=== PATIENT | female | born 1985 | race Caucasian/White ===

== ENCOUNTER 2018-05-04 17:53 | Emergency (ER) | payer MEDICAID ==
[2018-05-04] MEDS: ACETAMINOPHEN 325 MG TAB PO (19:56)
== END 2018-05-04 23:08 | disposition home or self-care (01) ==
LOC: FTE 17:53
DX: M25.572 Pain in left ankle and joints of left foot (principal)
CPT/HCPCS: 73610; 93971; 99284-25

== ENCOUNTER 2018-05-09 14:36 | Emergency (ER) | payer MEDICAID ==
[2018-05-09 17:08] LABS: ADD MAN DIFF? NO
[2018-05-09 17:12] LABS: BASOPHILS % 0.2 % (0.0-2.0); EOSINOPHILS # 0.1 10^3/ul (0.0-0.5); EOSINOPHILS % 0.8 % (0.0-7.0); HEMATOCRIT 36.2 % (37.0-47.0); HEMOGLOBIN 12.1 g/dl (12.0-16.0); LYMPHOCYTES # 0.9 10^3/ul (0.8-2.9); LYMPHOCYTES % 10.7 % (15.0-51.0); MEAN CORPUSCULAR HEMOGLOBIN 31.3 pg (29.0-33.0); MEAN CORPUSCULAR HGB CONC 33.4 g/dl (32.0-37.0); MEAN CORPUSCULAR VOLUME 93.5 fl (82.0-101.0); MEAN PLATELET VOLUME 11.5 fl (7.4-10.4); MONOCYTE # 0.8 10^3/ul (0.3-0.9); MONOCYTES % 9.1 % (0.0-11.0); NEUTROPHIL # 6.7 10^3/ul (1.6-7.5); NEUTROPHILS % 78.4 % (39.0-77.0); PLATELET COUNT 208 10^3/UL (140-415); RED BLOOD COUNT 3.87 10^6/ul (4.20-5.40); RED CELL DISTRIBUTION WIDTH 12.8 % (11.5-14.5)
[2018-05-09 17:12] LABS: WHITE BLOOD COUNT 8.6 10^3/ul (4.8-10.8)
[2018-05-09 17:30] LABS: ALANINE AMINOTRANSFERASE 54 IU/L (13-69); ALBUMIN/GLOBULIN RATIO 0.86; ALKALINE PHOSPHATASE 251 IU/L (42-121); ANION GAP 12 (8-16); ASPARTATE AMINO TRANSFERASE 35 IU/L (15-46); BILIRUBIN,INDIRECT 0.5 mg/dl (0-1.1); BILIRUBIN,TOTAL 0.5 mg/dl (0.2-1.3); BLOOD UREA NITROGEN 10 mg/dl (7-20); CALCIUM 9.5 mg/dl (8.4-10.2); CARBON DIOXIDE 22 mmol/L (21-31); CHLORIDE 108 mmol/L (97-110); CREATININE 0.52 mg/dl (0.44-1.00); GLUCOSE 94 mg/dl (70-220); POTASSIUM 3.9 mmol/L (3.5-5.1); SODIUM 138 mmol/L (135-144); TOTAL PROTEIN 8.6 g/dl (6.1-8.1)
[2018-05-09 17:49] LABS: ADD UMIC YES; UR AMORPHOUS CRYSTAL FEW /HPF (NONE SEEN); UR ASCORBIC ACID NEGATIVE (NEGATIVE); UR BACTERIA FEW /HPF (NONE SEEN); UR BILIRUBIN (Dip) NEGATIVE (NEGATIVE); UR BLOOD (Dip) NEGATIVE (NEGATIVE); UR CLARITY CLOUDY (CLEAR); UR COLOR YELLOW (YELLOW); UR GLUCOSE (Dip) 1+ mg/dL (NEGATIVE); UR KETONES (Dip) NEGATIVE (NEGATIVE); UR LEUKOCYTE ESTERASE (Dip) 1+ Leu/ul (NEGATIVE); UR NITRITE (Dip) NEGATIVE (NEGATIVE); UR NONSQUAMOUS EPITHELIAL CELL 2 /HPF (NONE SEEN); UR RBC 2 /HPF (0-5); UR SPECIFIC GRAVITY (Dip) 1.014 (1.003-1.030); UR SQUAMOUS EPITHELIAL CELL MANY /HPF (FEW); UR TOTAL PROTEIN (Dip) NEGATIVE (NEGATIVE); UR UROBILINOGEN (Dip) 1+ mg/dL (NEGATIVE); UR WBC 5 /HPF (0-5)
[2018-05-09] MEDS: METHYLPREDNISOLONE 125 MG INJ IV (18:31)
[2018-05-09] MEDS: CEFTRIAXONE 1 GM/50 ML (PMX) 50 ML IVPB (18:31)
== END 2018-05-09 20:15 | disposition home or self-care (01) ==
LOC: FTE 14:36
DX: O23.43 Unspecified infection of urinary tract in pregnancy, third trimester (principal); O99.713 Diseases of the skin and subcutaneous tissue complicating pregnancy, third trimester; L52 Erythema nodosum; Z3A.34 34 weeks gestation of pregnancy
CPT/HCPCS: 36415; 76812; 80053; 81001; 85025; 96365; 96375; 99285-25

== ENCOUNTER 2018-05-20 20:06 | Emergency (ER) | payer MEDICAID ==
[2018-05-21 00:24] LABS: URINE BLOOD (Dip) POC Negative (NEGATIVE); URINE GLUCOSE (Dip) POC Negative (NEGATIVE); URINE KETONES (Dip) POC Negative (NEGATIVE); URINE LEUKOCYTE EST (Dip) POC Negative (NEGATIVE); URINE NITRITE (Dip) POC Negative (NEGATIVE); URINE TOTAL PROTEIN POC 1+ (NEGATIVE)
[2018-05-21] MEDS: HYDROCODONE/APAP (5/325) TAB PO (00:30)
== END 2018-05-21 03:55 | disposition home or self-care (01) ==
LOC: E/R 05-21 03:55
DX: O99.713 Diseases of the skin and subcutaneous tissue complicating pregnancy, third trimester (principal); L52 Erythema nodosum; Z3A.34 34 weeks gestation of pregnancy
CPT/HCPCS: 81003; 93970; 99285-25

== ENCOUNTER 2018-06-16 11:01 | Inpatient (IN) | payer MEDICAID ==
[2018-06-16 11:57] LABS: ADD MAN DIFF? NO
[2018-06-16] MEDS ORDERED: LIDOCAINE 1% (MPF) 30 ML INJ INJ (12:00)
[2018-06-16] MEDS ORDERED: BUTORPHANOL 1 MG INJ IV (12:00)
[2018-06-16] MEDS ORDERED: METHYLERGONOVINE 0.2 MG INJ IM (12:00)
[2018-06-16] MEDS ORDERED: BUTORPHANOL 2 MG INJ IV (12:00)
[2018-06-16] MEDS ORDERED: CARBOPROST 250 MCG INJ IM (12:00)
[2018-06-16] MEDS ORDERED: MISOPROSTOL 200 MCG TAB PR (12:00)
[2018-06-16] MEDS ORDERED: OXYTOCIN 30 UNITS/LR 500 ML IV (12:00)
[2018-06-16 12:05] LABS: WHITE BLOOD COUNT 7.3 10^3/ul (4.8-10.8)
[2018-06-16 12:05] LABS: BASOPHILS % 0.3 % (0.0-2.0); EOSINOPHILS # 0.1 10^3/ul (0.0-0.5); EOSINOPHILS % 1.1 % (0.0-7.0); HEMATOCRIT 32.7 % (37.0-47.0); HEMOGLOBIN 10.8 g/dl (12.0-16.0); LYMPHOCYTES # 1.2 10^3/ul (0.8-2.9); LYMPHOCYTES % 16.9 % (15.0-51.0); MEAN CORPUSCULAR HEMOGLOBIN 30.7 pg (29.0-33.0); MEAN CORPUSCULAR VOLUME 92.9 fl (82.0-101.0); MEAN PLATELET VOLUME 11.2 fl (7.4-10.4); MONOCYTE # 0.5 10^3/ul (0.3-0.9); MONOCYTES % 7.4 % (0.0-11.0); NEUTROPHIL # 5.3 10^3/ul (1.6-7.5); NEUTROPHILS % 73.2 % (39.0-77.0); PLATELET COUNT 202 10^3/UL (140-415); RED BLOOD COUNT 3.52 10^6/ul (4.20-5.40); RED CELL DISTRIBUTION WIDTH 14.1 % (11.5-14.5)
[2018-06-16 12:06] LABS: INR 0.84; PROTIME 11.6 Sec (11.9-14.9); PT RATIO 0.9
[2018-06-16 12:07] LABS: PARTIAL THROMBOPLASTIN TIME 24.5 Sec (25.0-35.0)
[2018-06-16 12:51] LABS: HEPATITIS B SURFACE ANTIGEN NEGATIVE (NEGATIVE)
[2018-06-16] MEDS: LACTATED RINGER'S 1,000 ML IV* ×2 (12:54→19:11)
[2018-06-16] MEDS: DINOPROSTONE 10 MG VAG SUPP VAG (12:54)
[2018-06-16 16:33] LABS: ADD UMIC NO; UR ASCORBIC ACID NEGATIVE (NEGATIVE); UR BILIRUBIN (Dip) NEGATIVE (NEGATIVE); UR BLOOD (Dip) NEGATIVE (NEGATIVE); UR CLARITY CLEAR (CLEAR); UR COLOR YELLOW (YELLOW); UR GLUCOSE (Dip) NEGATIVE (NEGATIVE); UR KETONES (Dip) TRACE mg/dL (NEGATIVE); UR LEUKOCYTE ESTERASE (Dip) NEGATIVE Leu/ul (NEGATIVE); UR NITRITE (Dip) NEGATIVE (NEGATIVE); UR TOTAL PROTEIN (Dip) NEGATIVE (NEGATIVE); UR UROBILINOGEN (Dip) NEGATIVE (NEGATIVE)
[2018-06-16] MEDS: URSODIOL 300 MG CAP PO (17:16)
[2018-06-16 20:01] LABS: RAPID PLASMA REAGIN NONREACTIVE (NR)
[2018-06-17] MEDS: LACTATED RINGER'S 1,000 ML IV* ×2 (04:06→12:23)
[2018-06-17] MEDS: URSODIOL 300 MG CAP PO ×3 (04:09→13:46)
[2018-06-17] MEDS: OXYTOCIN 30 UNITS/LR 500 ML IV ×3 (16:07→20:45)
[2018-06-17] MEDS: IBUPROFEN 600 MG TAB PO (21:03)
[2018-06-17] MEDS ORDERED: CARBOPROST 250 MCG INJ IM (21:30)
[2018-06-17] MEDS ORDERED: METHYLERGONOVINE 0.2 MG INJ IM (21:30)
[2018-06-17] MEDS ORDERED: HYDROCODONE/APAP (5/325) TAB PO (21:30)
[2018-06-17] MEDS ORDERED: MISOPROSTOL 200 MCG TAB PR (21:30)
[2018-06-17] MEDS ORDERED: OXYTOCIN 30 UNITS/LR 500 ML IV (21:30)
[2018-06-18] MEDS: BENZOCAINE 20% 56 ML SPRAY TOP (01:45)
[2018-06-18] MEDS: LANOLIN 7 GM TUBE TOP (01:45)
[2018-06-18] MEDS: OXYTOCIN 30 UNITS/LR 500 ML IV (01:46)
[2018-06-18] MEDS: LACTATED RINGER'S 1,000 ML IV* ×4 (01:46→21:02)
[2018-06-18] MEDS: IBUPROFEN 600 MG TAB PO ×4 (02:37→17:38)
[2018-06-18 09:19] LABS: ADD MAN DIFF? NO
[2018-06-18 09:22] LABS: BASOPHILS % 0.2 % (0.0-2.0); EOSINOPHILS # 0.1 10^3/ul (0.0-0.5); EOSINOPHILS % 0.9 % (0.0-7.0); HEMATOCRIT 33.1 % (37.0-47.0); HEMOGLOBIN 10.9 g/dl (12.0-16.0); LYMPHOCYTES # 1.1 10^3/ul (0.8-2.9); LYMPHOCYTES % 10.4 % (15.0-51.0); MEAN CORPUSCULAR HEMOGLOBIN 30.1 pg (29.0-33.0); MEAN CORPUSCULAR HGB CONC 32.9 g/dl (32.0-37.0); MEAN CORPUSCULAR VOLUME 91.4 fl (82.0-101.0); MEAN PLATELET VOLUME 11.7 fl (7.4-10.4); MONOCYTE # 0.4 10^3/ul (0.3-0.9); MONOCYTES % 3.8 % (0.0-11.0); NEUTROPHIL # 8.7 10^3/ul (1.6-7.5); NEUTROPHILS % 84.1 % (39.0-77.0); PLATELET COUNT 176 10^3/UL (140-415); RED BLOOD COUNT 3.62 10^6/ul (4.20-5.40); RED CELL DISTRIBUTION WIDTH 14.7 % (11.5-14.5)
[2018-06-18 09:22] LABS: WHITE BLOOD COUNT 10.4 10^3/ul (4.8-10.8)
[2018-06-19] MEDS: IBUPROFEN 600 MG TAB PO ×2 (00:23→05:40)
[2018-06-19] MEDS: LACTATED RINGER'S 1,000 ML IV* (05:02)
[2018-06-19] MEDS: DIPHTH/TET/ACEL PERTUSS (ADULT) 0.5 ML VIAL IM* (08:32)
== END 2018-06-19 09:30 | disposition home or self-care (01) | DRG 775 ==
LOC: L-D 11:01 → PP1 06-17 22:25
PROVIDERS: Obstetrics & Gynecology
PROC: 3E0P7VZ Introduction of Hormone into Female Reproductive, Via Natural or Artificial Opening (ICD-10-PCS; 2018-06-16 10:30)
DX: O26.62 Liver and biliary tract disorders in childbirth (principal); K83.1 Obstruction of bile duct; Z37.0 Single live birth; Z3A.37 37 weeks gestation of pregnancy; O69.81X0 Labor and delivery complicated by cord around neck, without compression, not applicable or unspecified; O70.0 First degree perineal laceration during delivery
CPT/HCPCS: 76815; 76818; 81003; 85025; 85610; 85730; 86592; 86850; 86900; 86901; 87086; 87340; 99464

== ENCOUNTER 2018-07-11 20:47 | Emergency (ER) | payer MEDICAID ==
[2018-07-11 22:16] LABS: URINE BLOOD (Dip) POC 2+ (NEGATIVE); URINE GLUCOSE (Dip) POC Negative (NEGATIVE); URINE KETONES (Dip) POC Negative (NEGATIVE); URINE LEUKOCYTE EST (Dip) POC Negative (NEGATIVE); URINE NITRITE (Dip) POC Negative (NEGATIVE); URINE TOTAL PROTEIN POC 2+ (NEGATIVE)
[2018-07-11] MEDS: ONDANSETRON (ODT) 4 MG TAB ODT (22:18)
[2018-07-11] MEDS: LIDOCAINE/MYLANTA 40 ML BTL PO (22:19)
== END 2018-07-11 23:26 | disposition home or self-care (01) ==
LOC: FTE 20:47
DX: R10.13 Epigastric pain (principal); R11.10 Vomiting, unspecified
CPT/HCPCS: 81003; 81025; 99283

== ENCOUNTER 2018-08-19 20:41 | Emergency (ER) | payer MEDICAID ==
[2018-08-19] MEDS: CEFTRIAXONE 1 GM INJ IM (23:45)
== END 2018-08-20 00:06 | disposition home or self-care (01) ==
LOC: FTE 08-20 00:06
DX: N61.0 Mastitis without abscess (principal)
CPT/HCPCS: 96372; 99284-25

== ENCOUNTER 2018-08-29 16:21 | Inpatient (IN) | payer MEDICAID ==
[2018-08-29 17:51] LABS: ADD MAN DIFF? NO
[2018-08-29 17:55] LABS: BASOPHILS % 0.1 % (0.0-2.0); EOSINOPHILS # 0.2 10^3/ul (0.0-0.5); EOSINOPHILS % 2.2 % (0.0-7.0); HEMATOCRIT 35.6 % (37.0-47.0); HEMOGLOBIN 11.6 g/dl (12.0-16.0); LYMPHOCYTES # 1.8 10^3/ul (0.8-2.9); LYMPHOCYTES % 20.1 % (15.0-51.0); MEAN CORPUSCULAR HEMOGLOBIN 28.9 pg (29.0-33.0); MEAN CORPUSCULAR HGB CONC 32.6 g/dl (32.0-37.0); MEAN CORPUSCULAR VOLUME 88.8 fl (82.0-101.0); MEAN PLATELET VOLUME 10.1 fl (7.4-10.4); MONOCYTE # 0.7 10^3/ul (0.3-0.9); MONOCYTES % 7.5 % (0.0-11.0); NEUTROPHIL # 6.1 10^3/ul (1.6-7.5); NEUTROPHILS % 69.6 % (39.0-77.0); PLATELET COUNT 263 10^3/UL (140-415); RED BLOOD COUNT 4.01 10^6/ul (4.20-5.40); RED CELL DISTRIBUTION WIDTH 13.5 % (11.5-14.5)
[2018-08-29 17:55] LABS: WHITE BLOOD COUNT 8.8 10^3/ul (4.8-10.8)
[2018-08-29] MEDS: SOD CHLORIDE 0.9% 1,000 ML IV (18:04)
[2018-08-29] MEDS: morphine 4 MG/ML VIAL IV (18:04)
[2018-08-29] MEDS: ONDANSETRON 4 MG INJ IV (18:05)
[2018-08-29 18:12] LABS: ALANINE AMINOTRANSFERASE 28 IU/L (13-69); ALBUMIN 4.2 g/dl (3.3-4.9); ALBUMIN/GLOBULIN RATIO 0.93; ALKALINE PHOSPHATASE 122 IU/L (42-121); ANION GAP 8 (5-13); ASPARTATE AMINO TRANSFERASE 20 IU/L (15-46); BILIRUBIN,INDIRECT 0.3 mg/dl (0-1.1); BILIRUBIN,TOTAL 0.3 mg/dl (0.2-1.3); BLOOD UREA NITROGEN 15 mg/dl (7-20); CALCIUM 9.4 mg/dl (8.4-10.2); CARBON DIOXIDE 29 mmol/L (21-31); CHLORIDE 105 mmol/L (97-110); CREATININE 0.69 mg/dl (0.44-1.00); GLUCOSE 114 mg/dl (70-220); POTASSIUM 3.9 mmol/L (3.5-5.1); SODIUM 142 mmol/L (135-144); TOTAL PROTEIN 8.7 g/dl (6.1-8.1)
[2018-08-29 18:13] LABS: INR 0.99; PROTIME 13.2 Sec (11.9-14.9)
[2018-08-29 18:14] LABS: PARTIAL THROMBOPLASTIN TIME 27.4 Sec (23.0-35.0)
[2018-08-29] MEDS: PIPER-TAZO 3.375 GM IV (PMX) 100 ML IVPB (19:21)
[2018-08-29] MEDS ORDERED: ONDANSETRON 4 MG TAB PO (21:00)
[2018-08-29] MEDS ORDERED: BISACODYL (EC) 5 MG TAB PO (21:00)
[2018-08-29] MEDS ORDERED: NACL 0.9% 3 ML SYG IV (21:00)
[2018-08-29] MEDS ORDERED: ACETAMINOPHEN 325 MG TAB PO (21:00)
[2018-08-29] MEDS ORDERED: DOCUSATE SODIUM 100 MG CAP PO (21:00)
[2018-08-30] MEDS: SOD CHLORIDE 0.9% 1,000 ML IV ×3 (00:15→14:30)
[2018-08-30] MEDS: KETOROLAC 30 MG INJ IV ×4 (00:15→21:20)
[2018-08-30 05:30] LABS: ADD MAN DIFF? NO
[2018-08-30 05:32] LABS: BASOPHILS % 0.3 % (0.0-2.0); EOSINOPHILS # 0.2 10^3/ul (0.0-0.5); EOSINOPHILS % 2.4 % (0.0-7.0); HEMATOCRIT 34.3 % (37.0-47.0); HEMOGLOBIN 11.1 g/dl (12.0-16.0); LYMPHOCYTES # 1.4 10^3/ul (0.8-2.9); LYMPHOCYTES % 14.1 % (15.0-51.0); MEAN CORPUSCULAR HEMOGLOBIN 29.4 pg (29.0-33.0); MEAN CORPUSCULAR HGB CONC 32.4 g/dl (32.0-37.0); MEAN CORPUSCULAR VOLUME 90.7 fl (82.0-101.0); MONOCYTE # 0.8 10^3/ul (0.3-0.9); NEUTROPHIL # 7.3 10^3/ul (1.6-7.5); NEUTROPHILS % 74.9 % (39.0-77.0); PLATELET COUNT 237 10^3/UL (140-415); RED BLOOD COUNT 3.78 10^6/ul (4.20-5.40); RED CELL DISTRIBUTION WIDTH 13.7 % (11.5-14.5)
[2018-08-30 05:32] LABS: WHITE BLOOD COUNT 9.7 10^3/ul (4.8-10.8)
[2018-08-30] MEDS: PIPER-TAZO 3.375 GM IV (PMX) 100 ML IVPB ×3 (05:39→17:37)
[2018-08-30 05:51] LABS: HEMOGLOBIN A1C 5.3 % (0-5.9)
[2018-08-30 06:19] LABS: ALANINE AMINOTRANSFERASE 25 IU/L (13-69); ALBUMIN 3.1 g/dl (3.3-4.9); ALBUMIN/GLOBULIN RATIO 0.79; ALKALINE PHOSPHATASE 105 IU/L (42-121); ANION GAP 4 (5-13); ASPARTATE AMINO TRANSFERASE 19 IU/L (15-46); BILIRUBIN,INDIRECT 0.4 mg/dl (0-1.1); BILIRUBIN,TOTAL 0.4 mg/dl (0.2-1.3); BLOOD UREA NITROGEN 15 mg/dl (7-20); CALCIUM 9.1 mg/dl (8.4-10.2); CARBON DIOXIDE 28 mmol/L (21-31); CHLORIDE 108 mmol/L (97-110); CREATININE 0.59 mg/dl (0.44-1.00); GLUCOSE 91 mg/dl (70-220); MAGNESIUM 1.9 mg/dl (1.7-2.5); POTASSIUM 4.4 mmol/L (3.5-5.1); SODIUM 140 mmol/L (135-144)
[2018-08-30] MEDS ORDERED: CEFAZOLIN 1 GM INJ (07:00)
[2018-08-30] MEDS ORDERED: MIDAZOLAM 1 MG/ML 2 ML INJ (15:11)
[2018-08-30] MEDS ORDERED: ETOMIDATE 20 MG INJ (15:11)
[2018-08-30] MEDS ORDERED: LIDOCAINE 2% (SDV) 5 ML INJ (15:11)
[2018-08-30] MEDS ORDERED: PROPOFOL 20 ML (15:11)
[2018-08-30] MEDS ORDERED: FENTAnyl 50 MCG/ML VIAL ×2 (15:11→15:49)
[2018-08-30] MEDS ORDERED: HYDROmorphONE 1 MG/5 ML IV SYRINGE IV (15:30)
[2018-08-30] MEDS ORDERED: ONDANSETRON 4 MG INJ (15:47)
[2018-08-30] MEDS ORDERED: DEXAMETHASONE 4 MG/ML 1 ML INJ (15:48)
[2018-08-30] MEDS: BUPIVACAINE 0.25% (MPF) 30 ML INJ (16:00)
[2018-08-31] MEDS: PIPER-TAZO 3.375 GM IV (PMX) 100 ML IVPB ×4 (00:30→18:20)
[2018-08-31] MEDS: SOD CHLORIDE 0.9% 500 ML IV (01:59)
[2018-08-31] MEDS: SOD CHLORIDE 0.9% 1,000 ML IV ×2 (02:23→06:18)
[2018-08-31 05:14] LABS: ADD MAN DIFF? NO
[2018-08-31 05:19] LABS: BASOPHILS % 0.1 % (0.0-2.0); EOSINOPHILS % 0.3 % (0.0-7.0); HEMATOCRIT 33.6 % (37.0-47.0); HEMOGLOBIN 10.9 g/dl (12.0-16.0); LYMPHOCYTES # 1.2 10^3/ul (0.8-2.9); LYMPHOCYTES % 16.1 % (15.0-51.0); MEAN CORPUSCULAR HEMOGLOBIN 29.2 pg (29.0-33.0); MEAN CORPUSCULAR HGB CONC 32.4 g/dl (32.0-37.0); MEAN CORPUSCULAR VOLUME 90.1 fl (82.0-101.0); MEAN PLATELET VOLUME 10.5 fl (7.4-10.4); MONOCYTE # 0.4 10^3/ul (0.3-0.9); MONOCYTES % 5.1 % (0.0-11.0); NEUTROPHIL # 5.6 10^3/ul (1.6-7.5); NEUTROPHILS % 77.8 % (39.0-77.0); PLATELET COUNT 246 10^3/UL (140-415); RED BLOOD COUNT 3.73 10^6/ul (4.20-5.40); RED CELL DISTRIBUTION WIDTH 13.6 % (11.5-14.5)
[2018-08-31 05:19] LABS: WHITE BLOOD COUNT 7.2 10^3/ul (4.8-10.8)
[2018-08-31 05:56] LABS: MAGNESIUM 1.9 mg/dl (1.7-2.5)
[2018-08-31 05:56] LABS: PHOSPHORUS 3.9 mg/dl (2.5-4.9)
[2018-08-31] MEDS: PANTOPRAZOLE 40 MG INJ IV (06:18)
[2018-08-31] MEDS: HYDROCODONE/APAP (5/325) TAB PO ×2 (06:27→22:16)
[2018-08-31 07:03] LABS: ANION GAP 8 (5-13); BLOOD UREA NITROGEN 9 mg/dl (7-20); CALCIUM 9.1 mg/dl (8.4-10.2); CARBON DIOXIDE 26 mmol/L (21-31); CHLORIDE 107 mmol/L (97-110); CREATININE 0.52 mg/dl (0.44-1.00); GLUCOSE 104 mg/dl (70-220); POTASSIUM 4.2 mmol/L (3.5-5.1); SODIUM 141 mmol/L (135-144)
[2018-08-31] MEDS: morphine 2 MG INJ IV (10:34)
[2018-08-31] MEDS ORDERED: VANCOMYCIN IV PER PHARMACY XX (12:30)
[2018-08-31] MEDS: VANCOMYCIN 1.25 GM in SOD CHLORIDE 0.9% 250 ML IVPB (15:00)
[2018-08-31] MEDS: HYDROCODONE/APAP (10/325) TAB PO (17:44)
[2018-08-31] MEDS: VANCOMYCIN 750 MG in SOD CHLORIDE 0.9% 150 ML IVPB (22:16)
[2018-09-01] MEDS: PIPER-TAZO 3.375 GM IV (PMX) 100 ML IVPB ×4 (00:22→17:11)
[2018-09-01 04:58] LABS: ADD MAN DIFF? NO
[2018-09-01 05:02] LABS: WHITE BLOOD COUNT 5.9 10^3/ul (4.8-10.8)
[2018-09-01 05:02] LABS: BASOPHILS % 0.3 % (0.0-2.0); EOSINOPHILS # 0.2 10^3/ul (0.0-0.5); EOSINOPHILS % 2.9 % (0.0-7.0); HEMATOCRIT 32.3 % (37.0-47.0); HEMOGLOBIN 10.2 g/dl (12.0-16.0); LYMPHOCYTES # 1.8 10^3/ul (0.8-2.9); LYMPHOCYTES % 30.3 % (15.0-51.0); MEAN CORPUSCULAR HEMOGLOBIN 29.2 pg (29.0-33.0); MEAN CORPUSCULAR HGB CONC 31.6 g/dl (32.0-37.0); MEAN CORPUSCULAR VOLUME 92.6 fl (82.0-101.0); MEAN PLATELET VOLUME 10.6 fl (7.4-10.4); MONOCYTE # 0.5 10^3/ul (0.3-0.9); MONOCYTES % 8.2 % (0.0-11.0); NEUTROPHIL # 3.4 10^3/ul (1.6-7.5); NEUTROPHILS % 57.8 % (39.0-77.0); PLATELET COUNT 232 10^3/UL (140-415); RED BLOOD COUNT 3.49 10^6/ul (4.20-5.40); RED CELL DISTRIBUTION WIDTH 13.9 % (11.5-14.5)
[2018-09-01 05:34] LABS: PHOSPHORUS 4.2 mg/dl (2.5-4.9)
[2018-09-01 05:34] LABS: MAGNESIUM 1.8 mg/dl (1.7-2.5)
[2018-09-01 05:38] LABS: ANION GAP 5 (5-13); BLOOD UREA NITROGEN 15 mg/dl (7-20); CALCIUM 8.7 mg/dl (8.4-10.2); CARBON DIOXIDE 28 mmol/L (21-31); CHLORIDE 107 mmol/L (97-110); CREATININE 0.72 mg/dl (0.44-1.00); GLUCOSE 87 mg/dl (70-220); POTASSIUM 4.3 mmol/L (3.5-5.1); SODIUM 140 mmol/L (135-144)
[2018-09-01] MEDS: HYDROCODONE/APAP (10/325) TAB PO (06:29)
[2018-09-01] MEDS: VANCOMYCIN 750 MG in SOD CHLORIDE 0.9% 150 ML IVPB ×2 (06:29→15:59)
[2018-09-01] MEDS: PANTOPRAZOLE 40 MG INJ IV (06:29)
[2018-09-01 14:22] LABS: VANCOMYCIN,TROUGH 12.6 ug/ml (10.0-20.0)
[2018-09-01] MEDS: TRIMETHOPRIM/SULFAMETHOX (DS) TAB PO (15:59)
[2018-09-01] MEDS: IBUPROFEN 800 MG TAB PO (20:34)
[2018-09-01] MEDS ORDERED: LACTOBACILLUS RHAMNOSUS CAP PO (21:00)
== END 2018-09-01 20:45 | disposition home or self-care (01) | DRG 585 ==
LOC: FTE 16:21 → PP2 21:04
PROC: 0H9U0ZX Drainage of Left Breast, Open Approach, Diagnostic (ICD-10-PCS; principal; 2018-08-30 15:37)
DX: N61.1 Abscess of the breast and nipple (principal); D64.9 Anemia, unspecified
CPT/HCPCS: 76642; 80048; 80053; 80202; 83036; 83735; 84100; 84443; 85025; 85610; 85730; 87040; 87070; 87075; 96374; 96375; 99285-25